=== PATIENT | female | born 1955 | race Two or more races ===

== ENCOUNTER → 2025-03-28 | Outpatient (CLI) | payer MEDICARE, SELFPAY ==
[2025-03-28 10:25] LABS: Collection Type, Urine Clean Catch
[2025-03-28 10:54] LABS: Bilirubin,Urine Negative (Negative); Blood,Urine Negative (Negative); Clarity,Urine Clear (Clear/Hazy); Color,Urine Lt-Yellow (Lt Yel-Yel); Culture Indicated,Urine Not Indicated; Glucose, Urine Negative (Negative); Ketones,Urine Negative (Negative); Leukocyte Esterase,Urine Negative (Negative); Nitrite,Urine Negative (Negative); Protein,Urine Negative (Neg - Trace); RBC,Urine 1 /hpf (0-3); Squamous Epithelial Cell,Urine 1 /hpf (0-5); Urobilinogen,Urine Negative mg/dL (0.0-1.0); WBC,Urine 3 /hpf (0-5)
[2025-03-28 11:09] LABS: Vitamin B12 1034 pg/mL (211-911); Vitamin D 25 Hydroxy Total 89.4 ng/mL (7.3-40.2)
[2025-03-28 11:27] LABS: Alanine Aminotransferase 33 U/L (10-49); Albumin, Serum 4.3 gm/dL (3.4-4.8); Albumin/Globulin Ratio 1.7 (1.2-2.2); Alkaline Phosphatase 71 U/L (46-116); Anion Gap 9 (7-16); Aspartate Amino Transferase 21 U/L (0-34); BUN/Creatinine Ratio 27 Ratio (12-20); Bilirubin,Total 0.4 mg/dL (0.3-1.2); Blood Urea Nitrogen 16 mg/dL (9-23); Calcium 9.2 mg/dL (8.3-10.6); Calcium (Corrected) 9.2 mg/dL (8.5-10.1); Carbon Dioxide 26.3 mMol/L (20.0-31.0); Cardiac Risk Estimate 3.1 RATIO (3.7-5.6); Chloride 110 mMol/L (98-107); Cholesterol 196 mg/dL (132-200); Creatinine (Component) 0.6 mg/dL (0.6-1.3); Globulin 2.6 gm/dL (2.3-3.5); Glucose 93 mg/dL (74-106); HDL Cholesterol 64 mg/dL (40-60); LDL Cholesterol,Calculated 109 mg/dL (0-130); Osmolality,Calculated 289 (275-295); Potassium 4.4 mMol/L (3.4-5.1); Sodium 145 mMol/L (136-145); Thyroid Stimulating Hormone 3.57 uIU/mL (0.55-4.78); Total Protein 6.9 gm/dL (5.7-8.2); Triglycerides 117 mg/dL (30-150); eGFR > 60 See Note
== END | disposition home or self-care (01) ==
LOC: COPL 09:51
PROVIDERS: PCP Family Medicine; Referring Provider Physician Assistant; Visit Provider Physician Assistant
DX: Z00.00 Encounter for general adult medical examination without abnormal findings (principal); I10 Essential (primary) hypertension; E03.9 Hypothyroidism, unspecified
CPT/HCPCS: 36415; 80053; 80061; 81001; 82306; 82607; 84443

== ENCOUNTER → 2025-04-23 | Outpatient (CLI) | payer MEDICARE, SELFPAY ==
--- NOTE | 2025-04-23 09:15 | XR_ITS ---
Examination: Screening digital mammography, bilateral Computer aided detection 3-D breast Tomosynthesis, bilateral Date and time of exam: April 23, 2025 0859 hours Compared to mammograms dating to June 07, 2018 Indication: Screening Technique: Nonmagnified MLO, CC views of the breasts to been obtained, reconstructed from 3-D Tomosynthesis images. R2 computer aided detection program utilized for evaluation of suspicious masses and/or abnormal calcifications. 3-D Tomosynthesis images obtained. Findings: The breasts are heterogeneously dense, which may obscure small masses Breast biopsy marker retroareolar region right breast 13 mm round mass circumscribed inner right breast CC view 10 mm round mass circumscribed retroareolar region left breast MLO view Impression: BI-RADS Category 0: Incomplete: Need additional imaging evaluation Recommend spot tomographic views, CC, 13 mm round mass inner right breast as well as spot compression view upper right breast MLO Recommend spot tomographic views retroareolar region left breast to assess 10 mm round mass retroareolar region left breast on the MLO view Recommend bilateral breast sonography to the workup
== END | disposition home or self-care (01) ==
PROVIDERS: Referring Provider Physician Assistant; Visit Provider Physician Assistant
DX: Z12.31 Encounter for screening mammogram for malignant neoplasm of breast (principal); N63.42 Unspecified lump in left breast, subareolar; N63.12 Unspecified lump in the right breast, upper inner quadrant
CPT/HCPCS: 77063; 77067

== ENCOUNTER 2025-07-13 08:38 | Emergency (ER) | payer MEDICARE, SELFPAY ==
[2025-07-13 08:39] VITALS: BMI 31.6
[2025-07-13 08:45] VITALS: BP 145/105; PULSE 107; RESP 18; TEMP 36.4; O2SAT 97
[2025-07-13] MEDS: HYDROcodone/APAP 5/325 TABLET 1 TAB PO (09:12)
[2025-07-13] MEDS: cefTRIAXone 1,000 MG, LIDOCAINE 1% 20 ML 2.1 ML IM (09:13)
--- NOTE | 2025-07-13 13:39 | PD.EDSKIN ---
ED Skin Abcess FB-RME/HPI General Chief complaint: Skin/Abscess/Foreign Body Stated complaint: BUTTOCK ABSCESS Time Seen by Provider: 07/13/25 08:40 Arrival date/time: 07/13/25 08:38 Limitations: no limitations RME / HPI RME / HPI narrative: 69yo female here for right buttock abscess x 5days. Went to pcp and was given ibu which she reports is not helping. On bactrim as well, right buttock is leaking. no fever. no hx of ivdu. Requesting IM abx and stronger meds. Related Data Home Medications ?Medication ?Instructions ?Recorded ?Confirmed albuterol sulfate 2.5 mg/3 mL 12/23/20 (0.083 %) solution for nebulization ibuprofen 800 mg tablet 800 mg PO Q6H PRN insomnia 12/23/20 12/23/20 levothyroxine 25 mcg tablet 25 mcg PO QDAY 12/23/20 12/23/20 zolpidem 5 mg tablet (Ambien) 5 mg PO ACHS PRN Insomnia 12/23/20 12/23/20 Previous Rx's ?Medication ?Instructions ?Recorded prednisone 20 mg tablet 40 mg (2 x 20 mg) PO QDAY #8 tabs 06/03/21 cephalexin 500 mg capsule 500 mg PO BID #20 caps 07/13/25 hydrocodone 5 mg-acetaminophen 325 1 tab PO BID PRN pain 7 days #14 07/13/25 mg tablet tabs Allergies Allergy/AdvReac Type Severity Reaction Status Date / Time No Known Allergies Allergy Verified 07/14/21 12:07 Review of Systems Review of Systems Systems Reviewed: All systems reviewed, normal except as documented Constitutional Constitutional: Denies fever(s) ED Exam General Limitations: Present no limitations General appearance: Present alert and in no apparent distress Eye Eye exam: Present normal appearance, PERRL and EOMI Respiratory Respiratory exam: Present normal lung sounds bilaterally Cardiovascular Cardiovascular exam: Present regular rate, normal rhythm and normal heart sounds Abdominal Exam Abdominal exam: Present soft, tenderness and normal bowel sounds Rectal Exam Rectal exam: Present other (right buttock with oozing 2cm area of induration and erythema, no fissure no tracking ) Extremities Exam Extremities exam: Present normal inspection and full ROM Back Exam Back exam: Present normal inspection and full ROM Psychiatric Psychiatric exam: Present normal affect and normal mood Skin Skin exam: Present warm, dry, intact and normal color Course Quality Measures none Orders Category Date Time Status HYDROcodone*/APAP 5/325 [[place] 5/325] Med 07/13/25 09:05 Discontinued 1 tab PO X1 ONE cefTRIAXone [Rocephin] 1,000 mg Med 07/13/25 09:05 Discontinued Lidocaine 1% 20 ml [Xylocaine 1% 20 ML] 2.1 ml IM X1 Vital Signs Vital signs: Vital Signs Temperature 97.6 F 07/13/25 08:45 Pulse Rate 107 H 07/13/25 08:45 Respiratory Rate 18 07/13/25 08:45 Blood Pressure 145/105 H 07/13/25 08:45 Pulse Oximetry (%) 97 07/13/25 08:45 Oxygen Delivery Method Room Air 07/13/25 08:45 Skin / Abscess / Foreign Body Patient data External records reviewed:: [facility] previous records Clinical information provided by:: patient Social determinants that could affect healthcare access:: other (specify) Patient has the following chronic illnesses:: depression How is presenting disease/condition affected by chronic disease/condition?: uneffected by Evaluation data The following diagnostics were reviewed and interpreted by me:: other (specify) Lab and/or radiology exams considered but not ordered:: Wound culture was considered however unlikely to change the course of treatment today Interpretation Summary: No labs or imaging Medications / Prescriptions Medications or Prescriptions considered but not ordered:: Blood pressure medicine was considered however likely elevated blood pressure from pain Medication administrations:: Medication Administration History Discontinued Medications Hydrocodone Bitart/Acetaminophen (Hydrocodone/Apap 5/325 Tablet) 1 tab PO X1 ONE Stop: 07/13/25 09:06 Last Admin: 07/13/25 09:12 Dose: 1 tab Documented By: MINNA Ceftriaxone Sodium 1,000 mg/ (Lidocaine HCl 2.1 ml) 0 mg IM X1 ONE Stop: 07/13/25 09:06 Last Admin: 07/13/25 09:13 Dose: 1,000 mg Documented By: MINNA See above Consultations Consultation(s) initiated? (list below): No Diagnosis Skin/Abscess Differential Diagnosis: abscess of skin or subcutaneous tissue, viral exanthem, dermatophytosis, herpes zoster, cellulitis, eczema, insect bites and impetigo Most likely diagnosis given after review of the tests above:: Right buttock abscess Admission Indicated Admission indicated?: not indicated Admission Request Was there a request for admission?: No Disposition Plan Disposition Plan: Discharge Discharge Attestation Discharge Attestation: The patient and all family members were given an opportunity to ask questions and understood the discharge instructions. Discharge instructions specifically effects, indications for sooner follow up or return to the emergency department, and the expected course of current diagnosis. Patient condition: Stable Discharge Plan Plan Patient Disposition: HOME (Self Care) Discharge Disposition comment: f/.u with pcp in 2-3 Prescriptions/Referrals Prescriptions/Med Rec: New cephalexin 500 mg capsule 500 mg PO BID Qty: 20 0RF hydrocodone-acetaminophen 5-325 mg tablet 1 tab PO BID MDD 2 PRN (Reason: pain) 7 Days Qty: 14 0RF No Action ibuprofen 800 mg Tablet 800 mg PO Q6H PRN (Reason: insomnia) zolpidem [Ambien] 5 mg Tablet 5 mg PO ACHS PRN (Reason: Insomnia) albuterol sulfate 2.5 mg /3 mL (0.083 %) Solution For Nebulization levothyroxine 25 mcg Tablet 25 mcg PO QDAY prednisone 20 mg tablet 40 mg PO QDAY Qty: 8 0RF Problem List Clinical Impression: Abscess of buttock, right Patient/Caregiver Discharge Instructions Education Materials: ED Abscess Antibiotic ... Print Language: Iranian Stand Alone Forms: Slime Award Info., Patient Portal Info Letter PA/CLINICAL IMPLEMENTATION SPECIALIST Supervising Physician PA/CLINICAL IMPLEMENTATION SPECIALIST Supervising Physician: Dr. park
== END 2025-07-13 09:35 | disposition home or self-care (01) ==
LOC: SERX 09:23
PROVIDERS: Emergency Provider Physician Assistant; PCP Physician Assistant
DX: L02.31 Cutaneous abscess of buttock (principal)
CPT/HCPCS: 96372; 99283; J0696; J3490; A9270

== ENCOUNTER 2025-08-09 14:15 | Emergency (ER) | payer MEDICARE, SELFPAY ==
[2025-08-09 14:17] VITALS: BMI 32.0
[2025-08-09 14:24] VITALS: BP 204/126; BP 210/120; PULSE 75; RESP 18; TEMP 36.8; O2SAT 98; BMI 26.5
--- NOTE | 2025-08-09 14:31 | XR_ITS ---
Examination: CT brain head without contrast. 2-D sagittal coronal reconstructions Date and time of exam:August 09, 2025, 1457 hours, comparison January 23, 2019 INDICATIONS: Onset generalized head pain today CTDI: vol (mGy):46.2 DLP: (mGycm):927 Technique: Multiple CT axial sections of the brain have been obtained, 5 mm slice thickness. Contrast has not been administered. 2-D sagittal, coronal reconstructions have been obtained Low dose protocols were performed. One or more of the following dose reduction techniques were used; automated exposure control, adjustment of the mA and/or KV according to patient size, use of iterative reconstruction technique. Findings: No significant ventricular enlargement. Intra-axial or extra-axial hemorrhage density is not seen. No mass effect or midline shift Basal cisterns are not remarkable. Fourth ventricle is midline. Cranial vault intact. Impression: Negative for acute hemorrhage, mass effect or midline shift Advise clinical correlation and follow-up accordingly
--- NOTE | 2025-08-09 14:31 | EKG_ITS ---
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1955 Requested By: Tyrone Romero Order Number: [id number] Reading MD: Tyrone Romero Measurements Intervals [place] Rate: 74 P: [place]: QRS: 201 QRSD: 90 T: 185 QT: 380 QTc: 422 Interpretive Statements ATRIAL FIBRILLATION POSSIBLE RIGHT VENTRICULAR HYPERTROPHY [SOME/ALL OF: PROMINENT R IN V1, LATE TRANSITION, RAD, SUBHASH, SSS] ST DEVIATION AND MODERATE T-WAVE ABNORMALITY, CONSIDER INFERIOR ISCHEMIA [-0.1+ mV T-WAVE IN II/aVF] Compared to ECG 07/14/2021 12:49:14 T-wave abnormality now present Possible ischemia now present Sinus rhythm no longer present /store/S0/[id number]/ecg/[id number].pdf
--- NOTE | 2025-08-09 14:31 | XR_ITS ---
Examination: PA lateral chest 2 views TECHNIQUE: Upright PA lateral chest 2 views Date and time: August 09, 2025, 1455 hours, comparison July 07, 2022 INDICATIONS: Headache dizziness weakness beginning 3 weeks ago. FINDINGS: Normal heart size Ectatic thoracic aorta. No pneumonia or pulmonary edema Intact osseous structures IMPRESSION: No active disease
--- NOTE | 2025-08-09 14:32 | EDRME_ITS ---
Rapid Medical Screening Exam E Arrival date/time: 08/09/25 14:15 69-year-old female with a history of high Po thyroidism, hypertension, presents to the emergency room with a chief complaint of a left-sided headache, and left- sided facial numbness that began yesterday morning. Patient denies any unilateral numbness. I have greeted and performed a focused initial assessment of this patient. A comprehensive ED assessment and evaluation of the patient, analysis of all test results, and completion of the medical decision making process will be conducted by additional ED providers. Chief Complaint: Dizziness Vital signs: Vital Signs Temperature 98.2 F 08/09/25 14:24 Pulse Rate 75 08/09/25 14:24 Respiratory Rate 18 08/09/25 14:24 Blood Pressure 210/120 H 08/09/25 14:24 Pulse Oximetry (%) 98 08/09/25 14:24 Oxygen Delivery Method Room Air 08/09/25 14:24 Vital signs reviewed by provider: Yes
[2025-08-09 15:00] LABS: Collection Type, Urine Clean Catch
[2025-08-09 15:01] LABS: Basophils # (Auto) 0.0 Thou/mm3 (0.0-0.2); Basophils % (Auto) 1 % (0-2.5); Eosinophils # (Auto) 0.1 Thou/mm3 (0.0-0.5); Eosinophils % (Auto) 3 % (0-10); Hematocrit 38.9 % (36.0-46.0); Hemoglobin 13.0 g/dL (12.0-16.0); Immature Granulocytes Auto 0.01 Thou/mm3 (0.00-0.00); Lymphocytes # (Auto) 1.1 Thou/mm3 (1.0-4.8); Lymphocytes % (Auto) 23 % (10-50); Mean Corpuscular HGB Conc 33.4 g/dl (31.0-37.0); Mean Corpuscular Hemoglobin 30.6 pg (25.0-35.0); Mean Corpuscular Volume 92 fL (80-100); Monocytes # (Auto) 0.3 Thou/mm3 (0.0-0.8); Monocytes % (Auto) 7 % (0-12); Neutrophils # (Auto) 3.2 Thou/mm3 (1.8-7.7); Neutrophils % (Auto) 66 % (37-80); Nucleated Red Blood Cell # 0.00 Thou/mm3 (0.00-0.00); Nucleated Red Blood Cell % 0 /100 WBC (0); Platelet Count 186 Thou/mm3 (140-440); RDW Standard Deviation 41.3 fL (36.4-46.3); Red Blood Count 4.25 Miln/mm3 (4.00-5.20); White Blood Count 4.8 Thou/mm3 (3.6-11.0)
[2025-08-09 15:04] LABS: Bilirubin,Urine Negative (Negative); Blood,Urine Negative (Negative); Clarity,Urine Clear (Clear/Hazy); Color,Urine Lt-Yellow (Lt Yel-Yel); Culture Indicated,Urine Not Indicated; Glucose, Urine Negative (Negative); Ketones,Urine Negative (Negative); Leukocyte Esterase,Urine Negative (Negative); Nitrite,Urine Negative (Negative); PH,Urine 7.5 (5.0-7.0); Protein,Urine Negative (Neg - Trace); RBC,Urine 1 /hpf (0-3); Specific Gravity,Urine 1.008 (1.001-1.035); Squamous Epithelial Cell,Urine 3 /hpf (0-5); Urobilinogen,Urine Negative mg/dL (0.0-1.0); WBC,Urine 1 /hpf (0-5)
[2025-08-09 15:10] LABS: Amphetamine/Methamp Scrn,U Negative (Negative); Barbiturate Screen,Urine Negative (Negative); Benzodiazepines Screen,Urine Negative (Negative); Benzoylecgonine Screen, Ur Negative (Negative); Fentanyl Screen,Urine Negative (Negative); Opiate Screen,Urine Negative (Negative); THC Screen,Urine Negative (Negative)
[2025-08-09 15:17] LABS: INR 1.0 (0.9-1.3); Partial Thromboplastin Time 27.6 Seconds (22.0-36.0); Prothrombin Time 10.8 Seconds (9.0-12.2)
[2025-08-09 15:22] LABS: B-Type Natriuretic Peptide 179 pg/mL (0-100)
[2025-08-09 15:24] LABS: Alanine Aminotransferase 50 U/L (10-49); Albumin, Serum 4.3 gm/dL (3.4-4.8); Albumin/Globulin Ratio 1.9 (1.2-2.2); Alkaline Phosphatase 66 U/L (46-116); Anion Gap 9 (7-16); Aspartate Amino Transferase 28 U/L (0-34); BUN/Creatinine Ratio 20 Ratio (12-20); Bilirubin,Total 0.4 mg/dL (0.3-1.2); Blood Urea Nitrogen 16 mg/dL (9-23); Calcium 9.9 mg/dL (8.3-10.6); Calcium (Corrected) 9.9 mg/dL (8.5-10.1); Carbon Dioxide 26.1 mMol/L (20.0-31.0); Chloride 108 mMol/L (98-107); Creatinine (Component) 0.8 mg/dL (0.6-1.3); Estimated Creatinine Clearance 68.0 mL/min (>60); Globulin 2.3 gm/dL (2.3-3.5); Glucose 109 mg/dL (74-106); Magnesium 2.4 mg/dL (1.6-2.6); Osmolality,Calculated 287 (275-295); Potassium 4.4 mMol/L (3.4-5.1); Sodium 143 mMol/L (136-145); Total Protein 6.6 gm/dL (5.7-8.2); Troponin I < 0.020 ng/mL (0.0-0.045); eGFR > 60 See Note
[2025-08-09 15:26] VITALS: BP 210/120; PULSE 75
--- NOTE | 2025-08-09 16:27 | EDNOTE_ITS ---
ED Dizzyness RME/HPI General Chief Complaint: Dizziness Stated Complaint: VERTIGO X3 WEEKS, KISER TODAY Time Seen by Provider: 08/09/25 16:15 Arrival date/time: 08/09/25 14:15 RME / HPI RME / HPI Narrative: 69-year-old female with a history of hypothyroidism, hypertension, presents to the emergency room with a chief complaint of a left-sided headache, this been ongoing for the last 3 weeks, associated with on and off vertigo and dizziness. Patient denies any unilateral numbness. Patient denies any slurring of speech denies any head trauma denies any headache denies any neck pain denies any other complaints no medications taken prior to ER visit. Patient went to PCP, and was advised to come to the emergency room for further evaluation. Related Data Home Medications ?Medication ?Instructions ?Recorded ?Confirmed albuterol sulfate 2.5 mg/3 mL 12/23/20 (0.083 %) solution for nebulization ibuprofen 800 mg tablet 800 mg PO Q6H PRN insomnia 0 12/23/20 12/23/20 levothyroxine 25 mcg tablet 25 mcg PO QDAY 12/23/20 zolpidem 5 mg tablet (Ambien) 5 mg PO ACHS PRN Insomni a 12/23/20 12/23/20 Previous Rx's ?Medication ?Instructions ?Recorded prednisone 20 mg tablet 40 mg (2 x 20 mg) PO QDAY #8 tabs 06/03/21 cephalexin 500 mg capsule 500 mg PO BID #20 caps 07/13 ibuprofen 800 mg tablet 800 mg PO Q8H PRN pain #30 t abs 08/09/25 meclizine 25 mg tablet 25 mg PO BID PRN dizziness # 20 tabs 08/09/25 scopolamine base 1 mg over 3 days 1 mg topical .Q3days #4 ea 08/09/25 transdermal patch Allergies Allergy/AdvReac Type Severity Reaction Status Date / Time No Known Allergies Allergy Verified 07/14/21 12:07 Review of Systems Review of Systems Narrative Review of Systems: Review of system reviewed and within normal limits except mentioned in HPI ED Exam Narrative Physical exam: VITAL SIGNS: Reviewed. GENERAL APPEARANCE: Alert and interactive, follows commands, no acute distress, HEAD AND FACE: Non-traumatic. ENT: PERRL, pink conjunctivitis, eyelid no trauma, Mucous membrane moist. NECK: Supple, nontender, no nuchal rigidity. CHEST: No tenderness, no crepitus, no paradoxical movement, no retractions. LUNGS: Clear, well ventilated, symmetric, no rales, no wheezing, no ronchi, no stridor, good breath sounds bilaterally. HEART: Regular rate, regular rhythm, no murmur, no gallops. ABDOMEN: Soft, positive bowel sounds, nondistended, no guarding, nontender, no rebound, no masses, RECTAL: Deferred. GENITAL: Deferred. NEUROLOGICAL: Gross motor function intact sensory function intact, Appropriate for age. MUSCULOSKELETAL: low back nontender, full range of motion. EXTREMITIES: Nontender, full range of motion. SKIN: Color pink, dry, no rash, no lacerations, no abrasions, no contusions. LYMPHATICS: Deferred. Course Quality Measures none Orders Category Date Time Status EKG (ED ONLY) *Do not use* NOW Care 08/09/25 14:[address] head/brain wo con Stat Exams 08/09/25 14:31 Completed EKG (ED Only) Stat Exams 08/09/25 14:31 Draft XR chest 2V Stat Exams 08/09/25 14:31 Completed B-Type Natriuretic Peptide Stat Lab 08/09/25 14:54 Completed CBC Stat Lab 08/09/25 14:54 Completed Comprehensive Metabolic Panel Stat Lab 08/09/25 14:54 Completed Drug Screen,Urine Stat Lab 08/09/25 14:52 Completed Magnesium Stat Lab 08/09/25 14:54 Completed Partial Thromboplastin Time Stat Lab 08/09/25 14:54 Completed Prothrombin Time with INR Stat Lab 08/09/25 14:54 Completed Troponin I Stat Lab 08/09/25 14:54 Completed Urinalysis, C/S if Indicated Stat Lab 08/09/25 14:52 Completed Acetaminophen Tab [Tylenol ES Tab] Med 08/09/25 16:29 Discontinued 1,000 mg PO X1 ONE Meclizine HCl [Antivert] Med 08/09/25 16:16 Discontinued 25 mg PO X1 ONE cloNIDine HCL [Catapres] Med 08/09/25 14:30 Discontinued 0.1 mg PO X1 ONE Vital Signs Vital signs: Vital Signs Temperature 98.2 F 08/09/25 14:24 Pulse Rate 75 08/09/25 14:24 Respiratory Rate 18 08/09/25 14:24 Blood Pressure 210/120 H 08/09/25 14:24 Pulse Oximetry (%) 98 08/09/25 14:24 Oxygen Delivery Method Room Air 08/09/25 14:24 Dizziness MDM Narrative MDM Narrative:: 69-year-old female with a history of hypothyroidism, hypertension, presents to the emergency room with a chief complaint of a left-sided headache, this been ongoing for the last 3 weeks, associated with on and off vertigo and dizziness. Patient denies any unilateral numbness. Patient denies any slurring of speech denies any head trauma denies any headache denies any neck pain denies any other complaints no medications taken prior to ER visit. Patient went to PCP, and was advised to come to the emergency room for further evaluation. Patient's workup came back unremarkable. CT scan of the head also came back normal. Patient was given clonidine, Tylenol and meclizine. With significant improvement of dizziness and headache. Patient's blood pressure was noted to be 198/86 prior to discharge. And patient is not having any symptoms. Patient is ambulatory unaided. Stable for discharge home Patient data External records reviewed:: None Clinical information provided by:: patient Social determinants that could affect healthcare access:: none Patient has the following chronic illnesses:: Hypertension How is presenting disease/condition affected by chronic disease/condition?: exacerbated by Evaluation data The following diagnostics were reviewed and interpreted by me:: lab results, radiology exam(s) and EKG tracing(s) Lab and/or radiology exams considered but not ordered:: None Interpretation Summary: EKG showed A-fib, ventricular rate of 78 bpm, no ST segment elevation or de pression noted. Medications / Prescriptions Medications or Prescriptions considered but not ordered:: None Medication administrations:: Medication Administration History Discontinued Medications Acetaminophen (Acetaminophen 500 Mg Tablet) 1,000 mg PO X1 ONE Stop: 08/09/25 16:30 Last Admin: 08/09/25 16:54 Dose: 1,000 mg Documented By: DB Clonidine (Clonidine Hcl 0.1 Mg Tablet) 0.1 mg PO X1 ONE Stop: 08/09/25 14:31 Last Admin: 08/09/25 15:26 Dose: 0.1 mg Documented By: OA Meclizine HCl (Meclizine Hcl 25 Mg Tablet) 25 mg PO X1 ONE Stop: 08/09/25 16:17 Last Admin: 08/09/25 16:54 Dose: 25 mg Documented By: DB Meclizine, clonidine, Tylenol Consultations Consultation(s) initiated? (list below): No Consultation #1 (Physician, Specialty, Details): None Diagnosis Dizziness Differential Diagnosis: benign paroxysmal positional vertigo and other (Vertigo, dizziness, headache) Most likely diagnosis given after review of the tests above:: Headache, dizziness Admission Indicated Admission indicated?: not indicated Admission Request Was there a request for admission?: No Disposition Plan Disposition Plan: Discharge Discharge Attestation Discharge Attestation: The patient was given an opportunity to ask questions and understood the discharge instructions. Discharge instructions specifically effects, indications for sooner follow up or return to the emergency department, and the expected course of current diagnosis. Patient condition: Stable Discharge Plan Plan Patient Disposition: HOME (Self Care) Discharge Disposition comment: Stable Prescriptions/Referrals Prescriptions/Med Rec: New meclizine 25 mg tablet 25 mg PO BID PRN (Reason: dizziness) Qty: 20 0RF scopolamine base 1 mg over 3 days patch 3 day 1 mg topical .Q3days Qty: 4 0RF ibuprofen 800 mg tablet 800 mg PO Q8H PRN (Reason: pain) Qty: 30 0RF No Action ibuprofen 800 mg Tablet 800 mg PO Q6H PRN (Reason: insomnia) zolpidem [Ambien] 5 mg Tablet 5 mg PO ACHS PRN (Reason: Insomnia) albuterol sulfate 2.5 mg /3 mL (0.083 %) Solution For Nebulization levothyroxine 25 mcg Tablet 25 mcg PO QDAY prednisone 20 mg tablet 40 mg PO QDAY Qty: 8 0RF cephalexin 500 mg capsule 500 mg PO BID Qty: 20 0RF Referrals: Keisha Adamson PA-C [Primary Care Provider] - In 1 week Problem List Clinical Impression: Dizziness, Elevated blood pressure reading Patient/Caregiver Discharge Instructions Discharge Activity: activity as tolerated Education Materials: Vertigo Medicine Tx Additional Instructions: Thank you for the opportunity for serving you today. You are stable for discharged . You are advised to: Follow-up with your PCP in 1 to 2 days Return to ED for worsening of symptoms Increase oral fluids Take medication as prescribed Print Language: Polish Stand Alone Forms: Slime Award Info., Patient Portal Info Letter SAIGE/REJI Supervising Physician PA/EMR SPECIALIST Supervising Physician: MD Vikram
[2025-08-09] MEDS: MECLIZINE HCL 25 MG TABLET PO (16:54)
[2025-08-09] MEDS: ACETAMINOPHEN 500 MG TABLET 1000 MG PO (16:54)
[2025-08-09 16:55] VITALS: BP 198/95; PULSE 96; RESP 16; O2SAT 99
[2025-08-09 17:00] VITALS: BP 188/86; PULSE 78
== END 2025-08-09 17:08 | disposition home or self-care (01) ==
PROVIDERS: Emergency Provider Nurse Practitioner Family; PCP Physician Assistant
DX: R42 Dizziness and giddiness (principal); I10 Essential (primary) hypertension; I48.91 Unspecified atrial fibrillation; R51.9 Headache, unspecified
CPT/HCPCS: 36415; 70450; 71046; 80053; 80307; 81001; 83735; 83880; 84484; 85025; 85610; 85730; 93005; 99284; A9270